=== PATIENT | female | born 1995 | race Asian ===

== ENCOUNTER → 2016-06-03 | Outpatient (CLI) | payer OTHER ==
--- NOTE | 2016-06-03 14:55 | DIAGNOSTIC IMAGING REPORT ---
LEFT ANKLE MIN 3 VIEWS CLINICAL HISTORY: Left ankle pain COMPARISON: None. DISCUSSION: 3 views reveal no fractures of the ankle. There is a partially visualized fracture involving the base the fifth metatarsal. IMPRESSION: Fracture involving the base of the fifth metatarsal. No tibial or fibular fractures are visualized Electronically signed by: Juan Spence M.D. 06/03/2016 2:54 PM Dictated Date/Time: 06/03/2016 2:53 PM
--- NOTE | 2016-06-03 15:02 | DIAGNOSTIC IMAGING REPORT ---
LEFT FOOT MIN 3 VIEWS CLINICAL HISTORY: LEFT FOOT ANKLE PAIN pain. Trauma. COMPARISON: None. DISCUSSION: Fracture base fifth metatarsal. Slight bony distraction. No evidence of dislocation. All remaining osseous structures are unremarkable. Moderate localized soft tissue edema IMPRESSION: Fracture base fifth metatarsal Electronically signed by: Carlos A Ibarra M.D. 06/03/2016 3:01 PM Dictated Date/Time: 06/03/2016 3:01 PM
--- NOTE | 2016-06-03 15:32 | DIAGNOSTIC IMAGING REPORT ---
RIGHT COMPARISON VIEWS CLINICAL HISTORY: Foot pain. Fifth metatarsal fracture. COMPARISON STUDY: No previous studies for comparison. FINDINGS: Bilateral standing AP views reveal an oblique fracture involving the proximal left fifth metatarsal. No fractures are visualized on the right. There are no erosive or destructive changes. IMPRESSION: 1. No right foot fractures are visualized 2. Oblique fracture involving the base the left fifth metatarsal. Electronically signed by: Juan Spence M.D. 06/03/2016 3:31 PM Dictated Date/Time: 06/03/2016 3:30 PM
== END | disposition home or self-care (01) ==
LOC: C.RDSM 14:46
PROVIDERS: ATTEND Physician Assistant
DX: S92.352A Displaced fracture of fifth metatarsal bone, left foot, initial encounter for closed fracture (principal); X58.XXXA Exposure to other specified factors, initial encounter

== ENCOUNTER → 2016-06-11 | Outpatient (CLI) | payer OTHER ==
--- NOTE | 2016-06-11 13:27 | DIAGNOSTIC IMAGING REPORT ---
LEFT FOOT MIN 3 VIEWS CLINICAL HISTORY: FRACTURE OF LEFT 5TH METATARSAL trauma. Pain. COMPARISON: 06/03/2016 DISCUSSION: Fracture base fifth metatarsal. No change in appearance compared to the prior study. Slight bony distraction. Otherwise anatomic alignment. There is no evidence for soft tissue swelling. IMPRESSION: Unchanged comminuted fracture base fifth metatarsal. Electronically signed by: Carlos A Ibarra M.D. 06/11/2016 1:25 PM Dictated Date/Time: 06/11/2016 1:22 PM
== END | disposition home or self-care (01) ==
LOC: C.RDSM 13:45
PROVIDERS: ATTEND Physician Assistant
DX: S92.352A Displaced fracture of fifth metatarsal bone, left foot, initial encounter for closed fracture (principal); X58.XXXA Exposure to other specified factors, initial encounter

== ENCOUNTER → 2016-06-26 | Outpatient (CLI) | payer OTHER ==
--- NOTE | 2016-06-26 14:42 | DIAGNOSTIC IMAGING REPORT ---
LEFT FOOT MIN 3 VIEWS CLINICAL HISTORY: LEFT FOOT PAIN trauma. Pain. COMPARISON: Left foot 06/11/2016. DISCUSSION: Slightly, fracture at the base of the fifth metatarsal which demonstrates up to 3 mm of displacement. This appears to extend to the intertarsal and tarsometatarsal locations consistent with a generalized type fracture. No additional fractures identified. No significant healing. Mild lateral soft tissue swelling is again noted. IMPRESSION: No change in alignment and no significant healing identified within the mildly displaced fracture at the base of the fifth metatarsal. This appears to represent a Hobbs fracture. Electronically signed by: Noah Hammonds M.D. 06/26/2016 2:41 PM Dictated Date/Time: 06/26/2016 2:39 PM
== END | disposition home or self-care (01) ==
LOC: C.RDSM 14:02
PROVIDERS: ATTEND Physician Assistant
DX: S92.352A Displaced fracture of fifth metatarsal bone, left foot, initial encounter for closed fracture (principal); X58.XXXA Exposure to other specified factors, initial encounter